=== PATIENT | male | born 1955 | race Caucasian/White ===

== ENCOUNTER 2020-01-13 15:08 | Inpatient (IN) | payer MEDICAID, OTHER ==
[~2020-01-13] VITALS: Ht 182.9 cm; Wt 135.7 kg
[2020-01-13 15:52] LABS: Basophils # (auto) 0 10 ^3/uL (0-0.2); Basophils % (auto) 0.7 % (0.0-2.0); Eosinophils # (auto) 0.1 10 ^3/uL (0-0.8); Eosinophils % (auto) 1.9 % (0.0-7.0); Hemoglobin 7.3 g/dL (13.5-17.5); Monocytes # (auto) 0.4 10 ^3/uL (0-1.3); Platelet Count (auto) 87 10^3/uL (140-450); Red Blood Cells 2.69 10^6/uL (4.5-5.90)
[2020-01-13 15:53] LABS: Hematocrit 22.3 % (41.0-53.0); Lymphocytes # (auto) 0.7 10 ^3/uL (0.4-5.4); Lymphocytes % (auto) 11.9 % (10.0-50.0); Mean Corpuscular Hemoglobin 26.9 pg (28.0-32.0); Mean Corpuscular Hgb Conc. 32.5 g/dL (32.0-36.0); Mean Corpuscular Volume 82.9 fL (80.0-100.0); Monocytes % (auto) 7.4 % (0.0-12.0); Neutrophils # (auto) 4.7 10 ^3/uL (1.6-8.6); Neutrophils % (auto) 78.1 % (37.0-80.0); Red Cell Distribution Width 17.5 % (11.8-14.3)
[2020-01-13 16:14] LABS: Albumin 2.7 g/dL (3.4-5.0); Anion Gap 7 (5-15); BUN/Creatinine Ratio 16.5; Blood Alcohol < 3.0 mg/dL (0-5); Blood Urea Nitrogen 61 mg/dL (7-18); Calcium 8.1 mg/dL (8.5-10.1); Carbon Dioxide 33 mmol/L (21-32); Chloride 97 mmol/L (98-107); GFR African American 21 mL/min; GFR Non-African American 18 mL/min; Glucose 133 mg/dL (74-106); Magnesium 2.6 mg/dL (1.6-2.6); Potassium 4.1 mmol/L (3.5-5.1); Sodium 137 mmol/L (136-145)
[2020-01-13 16:17] LABS: INR 1.08 (0.9-1.15); Partial Thromboplastin Time 26.4 sec (23.0-31.2)
[2020-01-13 16:20] LABS: Alanine Aminotransferase 15 U/L (16-61); Alkaline Phosphatase 106 U/L (45-117); Aspartate Aminotransferase 17 U/L (15-37); Bilirubin, Total 0.7 mg/dL (0.2-1.0); Lactic Acid w/Reflex 2.7 mmol/L (0.4-2.0); Total Protein 7.1 g/dL (6.4-8.2)
[2020-01-13 16:48] LABS: Urine Bacteria NONE SEEN /hpf (None Seen); Urine Blood Negative /uL (Negative); Urine Mucus FEW (None Seen); Urine Specific Gravity 1.009 (1.001-1.035); Urine WBC <1 /hpf (0 - 3)
[2020-01-13 17:11] LABS: Alcohol, Urine < 3.0 mg/dL (0-10); Amphetamine Screen, Urine NEGATIVE (NEGATIVE); Barbiturate Scree,Urine NEGATIVE (NEGATIVE); Benzodiazephine Screen, Urine NEGATIVE (NEGATIVE); Cannabinoid Screen, Urine NEGATIVE (NEGATIVE); Cocaine Screen, Urine NEGATIVE (NEGATIVE); Opiate Scree,Urine NEGATIVE (NEGATIVE); Phencyclidine Screen, Urine NEGATIVE (NEGATIVE)
[2020-01-13] MEDS ORDERED: SODIUM CHLORIDE 0.9% 1,000 ML IV ONE ×3 (18:15→23:13)
[2020-01-13] MEDS ORDERED: cefTRIAXone 1GM/50ML D5W 50 ML IV ONE (18:15)
[2020-01-13] MEDS ORDERED: MORPHINE SULF INJ 2 MG/ML SYRINGE 1ML IV PRN ×2 (19:00→23:15)
[2020-01-13] MEDS ORDERED: NITROGLYCERIN 0.4 MG SL TAB SL PRN ×2 (19:00→23:15)
[2020-01-13] MEDS ORDERED: HYDR-531 PO (19:33)
[2020-01-13] MEDS ORDERED: OME20T PO (19:33)
[2020-01-13] MEDS ORDERED: ATOR40TA52 PO (19:33)
[2020-01-13] MEDS ORDERED: MONT10TA34 PO (19:34)
[2020-01-13] MEDS ORDERED: BUME1TAB3 PO (19:34)
[2020-01-13] MEDS ORDERED: ONDA-144 PO (19:34)
[2020-01-13] MEDS ORDERED: DOCU100T15 PO (19:44)
[2020-01-13] MEDS ORDERED: LEVO100T8 PO (19:44)
[2020-01-13] MEDS ORDERED: INS7030I SC (19:44)
[2020-01-13] MEDS ORDERED: CHOL0.05 PO (19:44)
[2020-01-13] MEDS ORDERED: PREG200C19 PO (19:44)
[2020-01-13] MEDS ORDERED: MAGN400T40 PO (19:44)
[2020-01-13] MEDS ORDERED: METO25TA93 PO (19:44)
[2020-01-13] MEDS ORDERED: SENN-58 PO (19:44)
[2020-01-13] MEDS ORDERED: METO5TAB56 PO (19:44)
[2020-01-13] MEDS ORDERED: ASPI-498 PO (19:44)
[2020-01-13] MEDS ORDERED: SPIR50TA5 PO (19:44)
[2020-01-13] MEDS ORDERED: FLUO-125 PO (19:44)
[2020-01-13] MEDS ORDERED: VANCOMYCIN PER PHARMACY 0 MG IV SCH (19:45)
[2020-01-13] MEDS ORDERED: PIPERACILLIN-TAZOB 2.25GM 50 ML IV ONE (19:45)
[2020-01-13] MEDS ORDERED: POM ×2 (19:46)
[2020-01-13] MEDS ORDERED: CETI10TA80 PO (19:48)
[2020-01-13] MEDS ORDERED: VANCOMYCIN 1GM/250ML 250 ML IV ONE (22:00)
[2020-01-13] MEDS ORDERED: LORazepam 2MG/ML-1ML VIAL IV PRN (23:15)
[2020-01-13] MEDS ORDERED: ACETAMINOPHEN 325 MG TAB PO PRN (23:15)
[2020-01-13] MEDS ORDERED: MORPHINE SULFATE 4 MG/ML SYR/VIAL IV PRN (23:15)
[2020-01-13] MEDS ORDERED: DEXTROSE (50%) 50ML SYRG IV PRN (23:45)
[2020-01-14] MEDS: SODIUM CHLORIDE 0.9% 1,000 ML IV SCH ×2 (00:45→17:03)
[2020-01-14] MEDS: HYDROCORTISONE SOD SUCC 100 MG/2ML INJ VIAL IV SCH ×4 (00:45→17:39)
[2020-01-14 01:50] VITALS: BP 100/37
[2020-01-14] MEDS: FUROSEMIDE 20 MG/2 ML VIAL IV SCH ×2 (05:52→17:39)
[2020-01-14] MEDS ORDERED: FUROSEMIDE 20 MG/2 ML VIAL IV SCH (06:00)
[2020-01-14] MEDS: ACCU-CHEK COMFORT CURVE STRIP VI SCH ×4 (06:51→22:00)
[2020-01-14] MEDS: LEVOTHYROXINE SODIUM 100 MCG TAB PO SCH (06:51)
[2020-01-14] MEDS: InsuLIN REG 1unit/0.01ml Soln (100units/ml) SC SCH ×3 (06:51→17:00)
[2020-01-14 07:05] LABS: Basophils # (auto) 0 10 ^3/uL (0-0.2); Eosinophils # (auto) 0.1 10 ^3/uL (0-0.8); Hemoglobin 7.4 g/dL (13.5-17.5); Lymphocytes # (auto) 0.9 10 ^3/uL (0.4-5.4); Mean Corpuscular Volume 83.8 fL (80.0-100.0); Monocytes # (auto) 0.4 10 ^3/uL (0-1.3); Neutrophils # (auto) 3.1 10 ^3/uL (1.6-8.6)
[2020-01-14 07:07] LABS: Basophils % (auto) 0.9 % (0.0-2.0); Eosinophils % (auto) 2.7 % (0.0-7.0); Hematocrit 22.6 % (41.0-53.0); Lymphocytes % (auto) 19.9 % (10.0-50.0); Mean Corpuscular Hemoglobin 27.4 pg (28.0-32.0); Mean Corpuscular Hgb Conc. 32.7 g/dL (32.0-36.0); Monocytes % (auto) 8.8 % (0.0-12.0); Neutrophils % (auto) 67.7 % (37.0-80.0); Nucleated Red Blood Cells % 0.2 %; Platelet Count (auto) 72 10^3/uL (140-450); Red Cell Distribution Width 17.5 % (11.8-14.3); White Blood Cell 4.6 10^3/uL (4.4-10.8)
[2020-01-14 07:27] LABS: BUN/Creatinine Ratio 17.3; Calcium 7.9 mg/dL (8.5-10.1); Potassium 3.8 mmol/L (3.5-5.1)
[2020-01-14] MEDS: ASPirin 81 mg TAB PO SCH (09:44)
[2020-01-14] MEDS: FAMOTIDINE (10MG/ML) 2ML VL IV SCH (09:44)
[2020-01-14] MEDS: FLUoxetine HCL 20 MG CAP PO SCH (09:45)
[2020-01-14] MEDS: MAGNESIUM OXIDE 400 MG TAB PO SCH ×2 (09:45→23:12)
[2020-01-14] MEDS: SPIRONOLACTONE 25 MG TAB PO SCH (09:45)
[2020-01-14] MEDS: PREGABALIN 25 MG CAP PO SCH ×2 (09:45→23:12)
[2020-01-14] MEDS: METOPROLOL SUCCINATE XL 50 MG TAB PO SCH (09:46)
[2020-01-14] MEDS: CHOLECALCIFEROL (VITD3) 2,000 UNIT CAP PO SCH (09:47)
[2020-01-14] MEDS: DOCUSATE SOD 100 MG CAP PO SCH ×2 (09:48→23:12)
[2020-01-14] MEDS: ALBUMIN 25% 100 ML IV SCH ×2 (09:50→17:09)
[2020-01-14] MEDS: GLYCOPYRROLATE NEB SCH ×2 (10:00→22:00)
[2020-01-14] MEDS ORDERED: PIPERACILLIN-TAZOB 2.25GM 50 ML IV SCH (10:00)
[2020-01-14] MEDS: BUDESONIDE (INHALATION) 0.5 MG/2 ML NEB NEB SCH ×3 (10:00→19:26)
--- NOTE | 2020-01-14 13:20 | NUR ---
Telemetry admit from ER DELL WARREN admitted to Telemetry unit after SBAR received. Patient oriented to Kathy Owens, primary RN, unit, room, bed, and unit policies regarding patient care and visiting hours. Patient now on continuous telemetry monitoring, tele box # [id number] and telemetry reading on arrival to unit is . Patient placed on bedside oxygen, weighed by bedscale and encouraged to call if they need something. All questions and concerns addressed, patient verbalized understanding. Note:
[2020-01-14 13:30] VITALS: BP 115/66
--- NOTE | 2020-01-14 13:30 | NUR ---
ASSESSMENT NOTE PT ARRIVED FROM ER VIA GURNEY FROM ER TO ROOM 236, PT IS ALERT TO SELF, FORGETFUL ABOUT THE SITUATION AND TIME, BUT FOLLOW UP DIRECTIONS AND ABLE TO BE REORIENTED AGAIN TO TIME, PLACE AND PERSON, PT IS OBESE TALL AND BIG, LARGE SOFT ABDOMEN NOTED, MITTAL CATHETER TO GRAVITY, URINE YELLOW TO CLEAR, EMPTY 1900 ML, RT LOWER EXTREMITIES SKIN ABRASIONS AND SKIN TEARS, LEFT ELBOW SKIN TEAR, LEFT FOREARM SKIN TEAR , TRACHEOSTOMY TUBE NOTED AT THE NECK BSE AREA, OXYGEN 2 L NC, WEAKNESS NOTED AT BOTH LOWER EXTREMITIES, PAIN0/10, ROOM ORIENTATION GIVEN TO PT, CALL LIGHT WITHIN REACH, ON FALL RISK PRECAUTIONS, BED ALARM ACTIVATED
--- NOTE | 2020-01-14 13:40 | NUR ---
WOUND CARE AND PICTURES CLEANSE WITH NS, PAT IT TO DRY, OPTIFOAM APPLIED, TOLERATED WELL RT LOWER EXTREMITIES, SKIN TER AND ABRASIONS LEFT ELBOW TEAR LEFT FOREARM SKIN TEAR
[2020-01-14 14:50] VITALS: BP 115/66
--- NOTE | 2020-01-14 16:35 | NUR ---
REPORT GIVEN TO DARLING JHAVERI WITH ALL PATIENT'S UPDATE
[2020-01-14 16:40] VITALS: BP 100/54
--- NOTE | 2020-01-14 16:40 | NUR ---
Pt Arrived on Unit/Transfer Pt transferred from 236 to room 273a. Pt transported via bed. Pt is a/ox4 with no s/s of distress or SOB. Pt placed on 2L via NC. Safety measures initiated with call light within reach, bed in lowest position and side rails up. Will continue to monitor for changes.
--- NOTE | 2020-01-14 16:50 | NUR ---
TRANSFER PT TO [facility] VIA HOSPITAL BED TO ROOM TO ROOM 273A, SHAKILA HASTINGS AT BED SIDE, PT STABLE, NO DISTRESS NOTED.
--- NOTE | 2020-01-14 16:55 | NUR ---
FAMILY SPOKE WITH PATENT'S LARA MADE AWARE OF PATIENT'S NEW ROOM 273A
--- NOTE | 2020-01-14 18:20 | NUR ---
Paged RT; Suction Treatment Pt requests suction treatment to Trach T tube; unable to successfully suction pt with Bryan. Paged RT and updated them on pt's trach and needs. RT stated they would be on the floor soon to see pt. Will endorse and notify TARSHA JHAVERI.
[2020-01-14] MEDS: IPRATROPIUM BROM 0.5 MG/2.5ML INH SOL NEB PRN (19:26)
[2020-01-14 20:00] VITALS: BP 107/59
[2020-01-14 22:00] VITALS: BP 107/59
[2020-01-14] MEDS ORDERED: SENNA 8.6 MG TAB PO SCH (22:00)
[2020-01-14] MEDS ORDERED: MONTELUKAST SODIUM 10 MG TAB PO SCH (22:00)
[2020-01-14] MEDS ORDERED: ATORVASTATIN 20 MG TAB PO SCH (22:00)
[2020-01-14] MEDS ORDERED: InsuLIN REG 1unit/0.01ml Soln (100units/ml) SC SCH (22:00)
--- NOTE | 2020-01-14 23:41 | NUR ---
SX PROVIDED VIA T-TUBE TRACHEOSTOMY, USING STERILE TECHNIQUE. SXD FOR SMALL AMOUNT OF THICK YELLOW/CREAMY COLORED SECRETIONS. NO ADVERSE REACTION OR INCIDENT. PT ALSO REQUESTED HIS STOMA SITE CLEANED CLEANED STOMA WITHOUT INCIDENT. PT AWARE RESPIRATORY CAN BE PAGED AT ANY TIME HE EXPERIENCES ANY SOB OR DIFFICULTY WITH HIS AIRWAY.
[2020-01-15] VITALS (9 sets, daily range): BP systolic 110–158; BP diastolic 60–83
[2020-01-15] MEDS: HYDROCORTISONE SOD SUCC 100 MG/2ML INJ VIAL IV SCH ×4 (00:12→18:00)
[2020-01-15] MEDS: ALBUMIN 25% 100 ML IV SCH (01:34)
--- NOTE | 2020-01-15 02:37 | NUR ---
Respiratory note: PT STATED EARLIER HE WANTS TO BE SUCTIONED Q4HRS. ENTERED ROOM, PT WAS SLEEPING. WOKE UP PT, PT STATED HE DOESN'T THINK HE HAS ENOUGH TO SUCTION AT THIS TIME. PT AWARE TO CALL IF HE NEEDS SUCTIONING. SPO2 100% ON 3L N/C, HR 67, RR 20. PT REMAINS ON CONT. POX.
[2020-01-15] MEDS: LEVOTHYROXINE SODIUM 100 MCG TAB PO SCH (06:07)
[2020-01-15] MEDS: FUROSEMIDE 20 MG/2 ML VIAL IV SCH ×2 (06:07→18:00)
[2020-01-15] MEDS: InsuLIN REG 1unit/0.01ml Soln (100units/ml) SC SCH ×3 (06:16→18:45)
[2020-01-15] MEDS: ACCU-CHEK COMFORT CURVE STRIP VI SCH ×3 (06:16→18:43)
[2020-01-15 06:37] LABS: Basophils # (auto) 0 10 ^3/uL (0-0.2); Eosinophils # (auto) 0 10 ^3/uL (0-0.8); Lymphocytes # (auto) 0.3 10 ^3/uL (0.4-5.4); Monocytes # (auto) 0.1 10 ^3/uL (0-1.3); Neutrophils # (auto) 2.9 10 ^3/uL (1.6-8.6); White Blood Cell 3.3 10^3/uL (4.4-10.8)
[2020-01-15 06:39] LABS: Basophils % (auto) 0.7 % (0.0-2.0); Eosinophils % (auto) 0.3 % (0.0-7.0); Hematocrit 20.1 % (41.0-53.0); Lymphocytes % (auto) 8.9 % (10.0-50.0); Mean Corpuscular Hemoglobin 27.6 pg (28.0-32.0); Mean Corpuscular Hgb Conc. 32.7 g/dL (32.0-36.0); Mean Corpuscular Volume 84.4 fL (80.0-100.0); Neutrophils % (auto) 86.1 % (37.0-80.0); Nucleated Red Blood Cells % 0.1 %; Platelet Count (auto) 66 10^3/uL (140-450); Red Blood Cells 2.38 10^6/uL (4.5-5.90); Red Cell Distribution Width 16.9 % (11.8-14.3)
[2020-01-15 06:42] LABS: Hemoglobin 6.6 g/dL (13.5-17.5)
--- NOTE | 2020-01-15 06:47 | NUR ---
CALLED FOR CRITICAL HGB 6.6 ORDERS TO TRANSFUSE 1 UNIT
[2020-01-15 06:57] LABS: Calcium 8.2 mg/dL (8.5-10.1); Potassium 4.2 mmol/L (3.5-5.1)
--- NOTE | 2020-01-15 07:25 | NUR ---
TRANSFUSION ENDORSED TRANSFUSION ENDORSED TO Arian Traore PATIENT REFUSED TO SIGN BLOOD CONSENT, SAID HIS WILL HAVE TO SIGN IT.
--- NOTE | 2020-01-15 07:45 | NUR ---
Transfusion Patient refusing transfusion at this time, want to talk with MD and for MD to talk with his first. Will notify MD.
[2020-01-15] MEDS: DOCUSATE SOD 100 MG CAP PO SCH (09:56)
[2020-01-15] MEDS: PREGABALIN 25 MG CAP PO SCH (09:56)
[2020-01-15] MEDS: FLUoxetine HCL 20 MG CAP PO SCH (09:57)
[2020-01-15] MEDS: ASPirin 81 mg TAB PO SCH (09:57)
[2020-01-15] MEDS: SPIRONOLACTONE 25 MG TAB PO SCH (09:57)
[2020-01-15] MEDS: MAGNESIUM OXIDE 400 MG TAB PO SCH (09:57)
[2020-01-15] MEDS: METOPROLOL SUCCINATE XL 50 MG TAB PO SCH (09:59)
[2020-01-15] MEDS: GLYCOPYRROLATE NEB SCH (10:00)
[2020-01-15] MEDS: CHOLECALCIFEROL (VITD3) 2,000 UNIT CAP PO SCH (10:00)
[2020-01-15] MEDS: FAMOTIDINE (10MG/ML) 2ML VL IV SCH (10:01)
[2020-01-15] MEDS: SODIUM CHLORIDE 0.9% 1,000 ML IV SCH (10:06)
[2020-01-15] MEDS: IPRATROPIUM BROM 0.5 MG/2.5ML INH SOL NEB PRN (11:06)
[2020-01-15] MEDS: BUDESONIDE (INHALATION) 0.5 MG/2 ML NEB NEB SCH (11:07)
--- NOTE | 2020-01-15 11:55 | NUR ---
WOUND CARE NOTE: WOUND CARE IN TO SEE PATIENT PER WOUND CARE REQUEST. PATIENT ADMITTED TO [facility] FOR [facility] IN A PATIENT WITH ESRD. BEDSIDE NURSE NOTED SKIN INTEGRITY ISSUES UPON ADMISSION. PHOTOGRAPHS TAKEN AT THAT TIME FOR REFERENCE. PATIENT YOSEF SCORE IS 16. PATIENT NOTED TO HAVE SKIN TEARS TO LEFT FOREARM, LEFT ELBOW, AND RIGHT ELAM. LEFT FOREARM SKIN TEAR MEASURES 0.5x1.0cm. CLEANSED WITH NORMAL SALINE, PATTED DRY WITH STERILE GAUZE, THERAHONEY APPLIED, COVERED WITH OPTIFOAM GENTLE DRESSING. LEFT ELBOW SKIN TEAR MEASURES 1.5x1.0cm. CLEANSED WITH NORMAL SALINE, PATTED DRY WITH STERILE GAUZE, THERAHONEY APPLIED, COVERED WITH OPTIFOAM GENTLE DRESSING. RIGHT ELAM SKIN TEAR MEASURES 3.5x3.0cm. CLEANSED WITH NORMAL SALINE, PATTED DRY WITH STERILE GAUZE, THERAHONEY APPLIED, COVERED WITH OPTIFOAM GENTLE DRESSING. NO OTHER WOUNDS NOTED. RECOMMEND: EOD/PRN DRESSING CHANGES TO SKIN TEARS. FREQUENT Q2HOUR REPOSITIONING CONDITION PERMITS. REDISTRIBUTE PRESSURE UTILIZING PILLOWS AND WEDGES. SKIN/WOUND CARE PLAN. CONTINUED MONITORING BY WOUND CARE TEAM. Addendum: 01/15/20 at 1507 by MANDY RILEY RN RN Amended: Links added.
--- NOTE | 2020-01-15 17:10 | NUR ---
Discharge Pictures Discharge pictures taken.
--- NOTE | 2020-01-15 17:11 | NUR ---
Transfusion Blood transfusion ended, no signs of interaction observed or reported. Will recheck vitals in 1 hour and patient can be discharged home as per MD's orders.
--- NOTE | 2020-01-15 20:17 | NUR ---
Discharge instructions given as ordered. Encourage to follow up with PMD as instructed. All questions and concerns addressed. Patient verbalized understanding. IV removed with catheter intact, pressure dressing applied, de catheter removed. Telemetry unit returned to ICU. Patient taken to vehicle via wheelchair with all personal belongings, accompanied by staff and family member. No distress noted at time of departure.
== END 2020-01-15 20:17 | disposition home or self-care (01) | DRG 312 ==
LOC: EDBD 15:08 → ER 15:08 → TELE 15:09 → TELE-WESTW 01-14 13:18 → TELE-EAST 01-14 13:20 → TELE-WESTW 01-14 17:01
PROVIDERS: ADMIT Hospitalist; ATTEND Internal Medicine Geriatric Medicine
PROC: 30233N1 Transfusion of Nonautologous Red Blood Cells into Peripheral Vein, Percutaneous Approach (ICD-10-PCS; principal; 2020-01-15)
DX: I95.1 Orthostatic hypotension (principal); E43 Unspecified severe protein-calorie malnutrition; J96.10 Chronic respiratory failure, unspecified whether with hypoxia or hypercapnia; I13.0 Hypertensive heart and chronic kidney disease with heart failure and stage 1 through stage 4 chronic kidney disease, or unspecified chronic kidney disease; N18.4 Chronic kidney disease, stage 4 (severe); K59.04 Chronic idiopathic constipation; D63.1 Anemia in chronic kidney disease; E03.9 Hypothyroidism, unspecified; E11.22 Type 2 diabetes mellitus with diabetic chronic kidney disease; I27.20 Pulmonary hypertension, unspecified; E11.21 Type 2 diabetes mellitus with diabetic nephropathy; I25.10 Atherosclerotic heart disease of native coronary artery without angina pectoris; E78.5 Hyperlipidemia, unspecified; Z20.828 Contact with and (suspected) exposure to other viral communicable diseases; J32.9 Chronic sinusitis, unspecified; M19.90 Unspecified osteoarthritis, unspecified site; J44.9 Chronic obstructive pulmonary disease, unspecified; Z95.1 Presence of aortocoronary bypass graft; Z86.73 Personal history of transient ischemic attack (TIA), and cerebral infarction without residual deficits; I25.2 Old myocardial infarction; Z88.5 Allergy status to narcotic agent; Z91.041 Radiographic dye allergy status; I50.9 Heart failure, unspecified; E66.01 Morbid (severe) obesity due to excess calories
CPT/HCPCS: 36415; 36600; 70450; 71045; 80048; 80053; 80202; 80307; 80320; 81001; 82550; 82728; 82805; 82962; 83605; 83735; 84484; 85025; 85379; 85610; 85730; 86141; 86850; 86900; 86901; 86920; 87040; 87086; 87426; 93005; 93306; 94640; 94760; 99291; G0378; J0696; J1815; J2543; J3490; P9047

== ENCOUNTER 2020-06-13 21:24 | Inpatient (IN) | payer OTHER ==
[~2020-06-13] VITALS: Ht 175.3 cm; Wt 145.1 kg
[~2020-06-13 21:24] MED LIST: ASPI-498 PO; ATOR40TA52 PO; BUME1TAB3 PO; CETI10TA80 PO; CHOL0.05 PO; DOCU100T15 PO; FLUO-125 PO; HYDR-531 PO; INS7030I SC; LEVO100T8 PO; MAGN400T40 PO; METO25TA93 PO; METO5TAB56 PO; MONT10TA34 PO; OME20T PO; ONDA-144 PO; POM NEB; PREG200C19 PO; SENN-58 PO; SPIR50TA5 PO
[2020-06-13 22:26] LABS: Basophils # (auto) 0 10 ^3/uL (0-0.2); Lymphocytes # (auto) 0.4 10 ^3/uL (0.4-5.4); Monocytes # (auto) 0.3 10 ^3/uL (0-1.3); Monocytes % (auto) 6.8 % (0.0-12.0); Neutrophils # (auto) 4.3 10 ^3/uL (1.6-8.6); White Blood Cell 5.1 10^3/uL (4.4-10.8)
[2020-06-13 22:28] LABS: Basophils % (auto) 0.6 % (0.0-2.0); Eosinophils # (auto) 0.1 10 ^3/uL (0-0.8); Eosinophils % (auto) 1.1 % (0.0-7.0); Hematocrit 19.4 % (41.0-53.0); Lymphocytes % (auto) 7.8 % (10.0-50.0); Mean Corpuscular Hemoglobin 26.5 pg (28.0-32.0); Mean Corpuscular Hgb Conc. 30.8 g/dL (32.0-36.0); Mean Corpuscular Volume 86.2 fL (80.0-100.0); Neutrophils % (auto) 83.7 % (37.0-80.0); Platelet Count (auto) 66 10^3/uL (140-450); Red Blood Cells 2.25 10^6/uL (4.5-5.90); Red Cell Distribution Width 17.9 % (11.8-14.3)
[2020-06-13 22:43] LABS: Albumin 2.9 g/dL (3.4-5.0); Amylase 15 U/L (25-115); Anion Gap 2 (5-15); Calcium 7.9 mg/dL (8.5-10.1); Carbon Dioxide 36 mmol/L (21-32); Chloride 95 mmol/L (98-107); Glucose 197 mg/dL (74-106); Lipase 23 U/L (73-393); Sodium 133 mmol/L (136-145)
[2020-06-13 22:49] LABS: Nucleated Red Blood Cells % 3.2 %
[2020-06-13 22:50] LABS: Alanine Aminotransferase 11 U/L (16-61); Alkaline Phosphatase 88 U/L (45-117); Aspartate Aminotransferase 12 U/L (15-37); BUN/Creatinine Ratio 17.1; Bilirubin, Total 1.3 mg/dL (0.2-1.0); GFR African American 13 mL/min; GFR Non-African American 11 mL/min; Total Protein 7.5 g/dL (6.4-8.2)
[2020-06-13 22:57] LABS: INR 1.18 (0.9-1.15); Partial Thromboplastin Time 28.5 sec (23.0-31.2)
[2020-06-13 23:03] LABS: Blood Urea Nitrogen 96 mg/dL (7-18); Potassium 6.3 mmol/L (3.5-5.1)
[2020-06-13 23:04] LABS: Magnesium 4.2 mg/dL (1.6-2.6)
[2020-06-13] MEDS ORDERED: LACTULOSE 20Gm/30ML SOLN PO ONE (23:15)
[2020-06-13] MEDS ORDERED: POTASSIUM CHL 20MEQ/100ML 100 ML IV ONE (23:15)
[2020-06-14] MEDS ORDERED: SODIUM BICARBONATE 8.4% INJ 50ML SYRINGE IV ONE
[2020-06-14] MEDS ORDERED: DEXTROSE (50%) 50ML SYRG IV ONE
[2020-06-14] MEDS ORDERED: FUROSEMIDE 20 MG/2 ML VIAL IV ONE
[2020-06-14] MEDS ORDERED: InsuLIN REG 1unit/0.01ml Soln (100units/ml) IV ONE
[2020-06-14] MEDS ORDERED: ALBUTEROL SULF 2.5 MG/0.5ML(0.5%) NEB SOLN NEB ONE
[2020-06-14] MEDS ORDERED: NOREPINEPHRINE 8 MG/250ML KIT 250 ML IV ONE (01:54)
[2020-06-14] MEDS: NOREPINEPHRINE 8 MG/250ML KIT 250 ML IV SCH (02:36)
[2020-06-14 02:37] LABS: Alcohol, Urine < 3.0 mg/dL (0-10); Amphetamine Screen, Urine NEGATIVE (NEGATIVE); Barbiturate Scree,Urine NEGATIVE (NEGATIVE); Benzodiazephine Screen, Urine NEGATIVE (NEGATIVE); Cannabinoid Screen, Urine NEGATIVE (NEGATIVE); Cocaine Screen, Urine NEGATIVE (NEGATIVE); Opiate Scree,Urine NEGATIVE (NEGATIVE); Phencyclidine Screen, Urine NEGATIVE (NEGATIVE); Urine Bacteria FEW /hpf (None Seen); Urine Blood Negative /uL (Negative); Urine Hyaline Cast FEW /lpf (0 - 2); Urine Specific Gravity 1.014 (1.001-1.035); Urine WBC 1 /hpf (0 - 3)
[2020-06-14] MEDS ORDERED: ONDANSETRON HCL 4 MG/2 ML VIAL IV PRN (02:45)
[2020-06-14] MEDS ORDERED: MORPHINE SULF INJ 2 MG/ML SYRINGE 1ML IV PRN (02:45)
[2020-06-14] MEDS ORDERED: NITROGLYCERIN 0.4 MG SL TAB SL PRN (02:45)
[2020-06-14] MEDS ORDERED: DEXTROSE (50%) 50ML SYRG IV PRN (02:45)
[2020-06-14 03:00] VITALS: BP 100/62
[2020-06-14 03:51] LABS: BUN/Creatinine Ratio 17.7; Calcium 7.9 mg/dL (8.5-10.1)
[2020-06-14 04:07] LABS: Potassium 5.6 mmol/L (3.5-5.1)
[2020-06-14] MEDS: ACCU-CHEK COMFORT CURVE STRIP VI SCH ×3 (06:11→18:00)
[2020-06-14] MEDS: InsuLIN REG 1unit/0.01ml Soln (100units/ml) SC SCH ×3 (06:16→18:31)
[2020-06-14] MEDS: FUROSEMIDE 40 MG/4 ML VIAL IV SCH ×2 (06:23→18:27)
[2020-06-14] MEDS: LEVOTHYROXINE SODIUM 100 MCG TAB PO SCH (07:00)
[2020-06-14] MEDS: LACTULOSE 20Gm/30ML SOLN PO SCH (08:49)
[2020-06-14 09:46] VITALS: BP 120/43
[2020-06-14 10:15] LABS: Basophils # (auto) 0 10 ^3/uL (0-0.2); Eosinophils # (auto) 0.1 10 ^3/uL (0-0.8); Hemoglobin 7.5 g/dL (13.5-17.5); Monocytes # (auto) 0.6 10 ^3/uL (0-1.3); Nucleated Red Blood Cells % 0.1 %
[2020-06-14 10:18] LABS: Basophils % (auto) 0.6 % (0.0-2.0); Eosinophils % (auto) 1.3 % (0.0-7.0); Hematocrit 23.6 % (41.0-53.0); Lymphocytes # (auto) 0.5 10 ^3/uL (0.4-5.4); Lymphocytes % (auto) 7.4 % (10.0-50.0); Mean Corpuscular Hemoglobin 27.5 pg (28.0-32.0); Mean Corpuscular Hgb Conc. 31.9 g/dL (32.0-36.0); Monocytes % (auto) 9.8 % (0.0-12.0); Neutrophils % (auto) 80.9 % (37.0-80.0); Platelet Count (auto) 72 10^3/uL (140-450); Red Blood Cells 2.74 10^6/uL (4.5-5.90); Red Cell Distribution Width 17.3 % (11.8-14.3); White Blood Cell 6.2 10^3/uL (4.4-10.8)
[2020-06-14 10:28] LABS: BUN/Creatinine Ratio 17.4; Calcium 8.1 mg/dL (8.5-10.1)
[2020-06-14 11:19] LABS: Potassium 5.7 mmol/L (3.5-5.1)
[2020-06-14] MEDS ORDERED: TAM04C PO (13:20)
[2020-06-14] MEDS ORDERED: LACT10SO3 PO (13:20)
[2020-06-14] MEDS ORDERED: LEVA0.6320 IN (13:20)
[2020-06-14] MEDS ORDERED: ACET-1304 PO (13:20)
[2020-06-14] MEDS ORDERED: SILV-21 TOP (13:20)
[2020-06-14] MEDS ORDERED: LID35TP EX (13:20)
[2020-06-14] MEDS: PANTOPRAZOLE 40 MG/10 ML VIAL INJ IV SCH (22:00)
[2020-06-14] MEDS: ATORVASTATIN 20 MG TAB PO SCH (22:00)
[2020-06-15] MEDS: InsuLIN REG 1unit/0.01ml Soln (100units/ml) SC SCH ×4 (00:36→18:53)
[2020-06-15] MEDS: ACCU-CHEK COMFORT CURVE STRIP VI SCH ×4 (00:36→18:53)
[2020-06-15] MEDS: NOREPINEPHRINE 8 MG/250ML KIT 250 ML IV SCH ×2 (02:21→14:45)
[2020-06-15] MEDS: FUROSEMIDE 40 MG/4 ML VIAL IV SCH (06:16)
[2020-06-15 07:15] LABS: Eosinophils # (auto) 0.1 10 ^3/uL (0-0.8); Lymphocytes # (auto) 0.5 10 ^3/uL (0.4-5.4); Monocytes # (auto) 0.6 10 ^3/uL (0-1.3); Neutrophils # (auto) 4.3 10 ^3/uL (1.6-8.6); Nucleated Red Blood Cells % 0.1 %; Red Blood Cells 2.75 10^6/uL (4.5-5.90); Red Cell Distribution Width 17.6 % (11.8-14.3); White Blood Cell 5.5 10^3/uL (4.4-10.8)
[2020-06-15 07:18] LABS: Basophils # (auto) 0 10 ^3/uL (0-0.2); Basophils % (auto) 0.8 % (0.0-2.0); Hematocrit 23.8 % (41.0-53.0); Hemoglobin 7.5 g/dL (13.5-17.5); Lymphocytes % (auto) 9.7 % (10.0-50.0); Mean Corpuscular Hemoglobin 27.4 pg (28.0-32.0); Mean Corpuscular Hgb Conc. 31.7 g/dL (32.0-36.0); Mean Corpuscular Volume 86.6 fL (80.0-100.0); Monocytes % (auto) 10.1 % (0.0-12.0); Neutrophils % (auto) 77.4 % (37.0-80.0); Platelet Count (auto) 67 10^3/uL (140-450)
[2020-06-15 07:22] LABS: Calcium 8.3 mg/dL (8.5-10.1)
[2020-06-15 07:26] LABS: BUN/Creatinine Ratio 18.8
[2020-06-15 07:29] LABS: Bilirubin, Total 1.4 mg/dL (0.2-1.0); Total Protein 7.3 g/dL (6.4-8.2)
[2020-06-15 08:09] LABS: Potassium 5.7 mmol/L (3.5-5.1)
[2020-06-15] MEDS: PANTOPRAZOLE 40 MG/10 ML VIAL INJ IV SCH ×2 (08:22→22:00)
[2020-06-15] MEDS: LEVOTHYROXINE SODIUM 100 MCG TAB PO SCH (08:22)
[2020-06-15] MEDS ORDERED: SODIUM ZIRCONIUM CYCL 10 GM PAK PO ONE (09:45)
[2020-06-15] MEDS: LACTULOSE 20Gm/30ML SOLN PO SCH (10:53)
[2020-06-15] MEDS ORDERED: CALCIUM GLUC 4.65meq/50ml D5AE 50 ML IV ONE (15:15)
[2020-06-15] MEDS ORDERED: SODIUM CHLORIDE 0.9% 500 ML IV ONE (15:15)
[2020-06-15] MEDS ORDERED: ALBUMIN 25% 100 ML IV ONE ×2 (15:15→16:30)
[2020-06-15] MEDS ORDERED: DEXTROSE (50%) 50ML SYRG IV ONE (15:15)
[2020-06-15] MEDS ORDERED: InsuLIN REG 1unit/0.01ml Soln (100units/ml) IV ONE (15:15)
[2020-06-15] MEDS: SODIUM CHLORIDE 0.9% 1,000 ML IV SCH (15:56)
[2020-06-15] MEDS: ATORVASTATIN 20 MG TAB PO SCH (22:00)
[2020-06-16] VITALS (8 sets, daily range): BP systolic 98–114; BP diastolic 50–57
[2020-06-16] MEDS: ACCU-CHEK COMFORT CURVE STRIP VI SCH ×4 (00:11→18:11)
[2020-06-16] MEDS: InsuLIN REG 1unit/0.01ml Soln (100units/ml) SC SCH ×4 (00:16→18:19)
[2020-06-16] MEDS: SODIUM CHLORIDE 0.9% 1,000 ML IV SCH ×2 (04:35→18:10)
[2020-06-16 06:46] LABS: Basophils # (auto) 0 10 ^3/uL (0-0.2); Eosinophils # (auto) 0.1 10 ^3/uL (0-0.8); Eosinophils % (auto) 1.6 % (0.0-7.0); Lymphocytes # (auto) 0.5 10 ^3/uL (0.4-5.4); Monocytes # (auto) 0.6 10 ^3/uL (0-1.3); Neutrophils # (auto) 3.7 10 ^3/uL (1.6-8.6); Red Cell Distribution Width 17.6 % (11.8-14.3)
[2020-06-16 06:49] LABS: Basophils % (auto) 0.6 % (0.0-2.0); Hematocrit 22.8 % (41.0-53.0); Hemoglobin 7.2 g/dL (13.5-17.5); Lymphocytes % (auto) 10.1 % (10.0-50.0); Mean Corpuscular Hemoglobin 27.5 pg (28.0-32.0); Mean Corpuscular Hgb Conc. 31.7 g/dL (32.0-36.0); Mean Corpuscular Volume 86.8 fL (80.0-100.0); Monocytes % (auto) 12.3 % (0.0-12.0); Neutrophils % (auto) 75.4 % (37.0-80.0); Platelet Count (auto) 60 10^3/uL (140-450); Red Blood Cells 2.62 10^6/uL (4.5-5.90); White Blood Cell 4.9 10^3/uL (4.4-10.8)
[2020-06-16 07:08] LABS: Potassium 5.5 mmol/L (3.5-5.1)
[2020-06-16 07:11] LABS: BUN/Creatinine Ratio 20.9
[2020-06-16] MEDS: LEVOTHYROXINE SODIUM 100 MCG TAB PO SCH (09:30)
[2020-06-16] MEDS: PANTOPRAZOLE 40 MG/10 ML VIAL INJ IV SCH ×2 (09:32→21:47)
[2020-06-16] MEDS: LACTULOSE 20Gm/30ML SOLN PO SCH (10:27)
[2020-06-16] MEDS ORDERED: CALCIUM GLUC 4.65meq/50ml D5AE 50 ML IV ONE (16:45)
[2020-06-16] MEDS ORDERED: InsuLIN REG 1unit/0.01ml Soln (100units/ml) IV ONE (16:45)
[2020-06-16] MEDS ORDERED: DEXTROSE (50%) 50ML SYRG IV ONE (16:45)
[2020-06-16] MEDS: NOREPINEPHRINE 8 MG/250ML KIT 250 ML IV SCH (20:00)
[2020-06-16] MEDS: ATORVASTATIN 20 MG TAB PO SCH (21:47)
[2020-06-16] MEDS: ACETAMINOPHEN 325 MG TAB PO PRN (21:56)
[2020-06-17] MEDS: ACCU-CHEK COMFORT CURVE STRIP VI SCH ×5 (00:18→23:42)
[2020-06-17] MEDS: InsuLIN REG 1unit/0.01ml Soln (100units/ml) SC SCH ×5 (00:21→23:44)
[2020-06-17] MEDS: SODIUM CHLORIDE 0.9% 1,000 ML IV SCH ×3 (01:03→22:01)
[2020-06-17] MEDS: LEVOTHYROXINE SODIUM 100 MCG TAB PO SCH (05:32)
[2020-06-17] MEDS: PANTOPRAZOLE 40 MG/10 ML VIAL INJ IV SCH ×2 (10:07→21:53)
[2020-06-17] MEDS: LACTULOSE 20Gm/30ML SOLN PO SCH (10:07)
[2020-06-17 10:45] LABS: Eosinophils # (auto) 0.1 10 ^3/uL (0-0.8); Lymphocytes # (auto) 0.6 10 ^3/uL (0.4-5.4); Monocytes # (auto) 0.6 10 ^3/uL (0-1.3); Neutrophils # (auto) 3.2 10 ^3/uL (1.6-8.6); Nucleated Red Blood Cells % 0.1 %; Platelet Count (auto) 55 10^3/uL (140-450); White Blood Cell 4.5 10^3/uL (4.4-10.8)
[2020-06-17 10:47] LABS: Basophils # (auto) 0 10 ^3/uL (0-0.2); Basophils % (auto) 0.8 % (0.0-2.0); Eosinophils % (auto) 2.9 % (0.0-7.0); Hematocrit 25.6 % (41.0-53.0); Hemoglobin 8.1 g/dL (13.5-17.5); Lymphocytes % (auto) 13.1 % (10.0-50.0); Mean Corpuscular Hemoglobin 27.6 pg (28.0-32.0); Mean Corpuscular Hgb Conc. 31.6 g/dL (32.0-36.0); Mean Corpuscular Volume 87.3 fL (80.0-100.0); Monocytes % (auto) 12.8 % (0.0-12.0); Neutrophils % (auto) 70.4 % (37.0-80.0); Red Blood Cells 2.94 10^6/uL (4.5-5.90); Red Cell Distribution Width 17.7 % (11.8-14.3)
[2020-06-17 11:04] LABS: BUN/Creatinine Ratio 22.5; Calcium 8.1 mg/dL (8.5-10.1); Potassium 5.3 mmol/L (3.5-5.1)
[2020-06-17] MEDS ORDERED: ALBUMIN 25% 100 ML IV ONE (17:45)
[2020-06-17] MEDS ORDERED: BUMETANIDE 2.5mg/10ml (0.25 mg/ml) INJ IV ONE (17:45)
[2020-06-17] MEDS: ACETAMINOPHEN 325 MG TAB PO PRN (21:03)
[2020-06-17] MEDS: ATORVASTATIN 20 MG TAB PO SCH (21:03)
[2020-06-18] MEDS: NOREPINEPHRINE 8 MG/250ML KIT 250 ML IV SCH (02:15)
[2020-06-18] MEDS: InsuLIN REG 1unit/0.01ml Soln (100units/ml) SC SCH ×2 (05:21→07:40)
[2020-06-18] MEDS: ACCU-CHEK COMFORT CURVE STRIP VI SCH ×2 (05:21→07:40)
[2020-06-18] MEDS: LEVOTHYROXINE SODIUM 100 MCG TAB PO SCH (05:38)
[2020-06-18 06:34] LABS: Potassium 5.1 mmol/L (3.5-5.1)
[2020-06-18 07:03] LABS: Basophils # (auto) 0 10 ^3/uL (0-0.2); Basophils % (auto) 0.8 % (0.0-2.0); Eosinophils # (auto) 0.1 10 ^3/uL (0-0.8); Eosinophils % (auto) 2.9 % (0.0-7.0); Hematocrit 22.8 % (41.0-53.0); Hemoglobin 7.2 g/dL (13.5-17.5); Lymphocytes # (auto) 0.4 10 ^3/uL (0.4-5.4); Lymphocytes % (auto) 14.5 % (10.0-50.0); Mean Corpuscular Hemoglobin 27.3 pg (28.0-32.0); Mean Corpuscular Hgb Conc. 31.5 g/dL (32.0-36.0); Mean Corpuscular Volume 86.7 fL (80.0-100.0); Monocytes # (auto) 0.3 10 ^3/uL (0-1.3); Monocytes % (auto) 9.8 % (0.0-12.0); Neutrophils # (auto) 2.2 10 ^3/uL (1.6-8.6); Nucleated Red Blood Cells % 0.2 %; Platelet Count (auto) 50 10^3/uL (140-450); Red Blood Cells 2.63 10^6/uL (4.5-5.90); Red Cell Distribution Width 17.6 % (11.8-14.3); White Blood Cell 3.1 10^3/uL (4.4-10.8)
[2020-06-18 07:06] LABS: BUN/Creatinine Ratio 21.5; Calcium 8.1 mg/dL (8.5-10.1)
[2020-06-18] MEDS: PANTOPRAZOLE 40 MG/10 ML VIAL INJ IV SCH (07:38)
[2020-06-18] MEDS: LACTULOSE 20Gm/30ML SOLN PO SCH (07:39)
[2020-06-18 12:06] VITALS: BP 96/51
[2020-06-18] MEDS ORDERED: EPOETIN ALFA 10,000 UNIT/1 ML VIAL SC ONE (21:00)
== END 2020-06-18 21:11 | disposition home health service (06) | DRG 292 ==
LOC: EDBD 21:24 → ER 21:26 → OVERFLOW 06-14 02:38
PROVIDERS: ADMIT Nurse Practitioner; ATTEND Internal Medicine Geriatric Medicine
PROC: 30230N1 Transfusion of Nonautologous Red Blood Cells into Peripheral Vein, Open Approach (ICD-10-PCS; principal; 2020-06-14)
DX: I13.0 Hypertensive heart and chronic kidney disease with heart failure and stage 1 through stage 4 chronic kidney disease, or unspecified chronic kidney disease (principal); G93.40 Encephalopathy, unspecified; J96.10 Chronic respiratory failure, unspecified whether with hypoxia or hypercapnia; N18.4 Chronic kidney disease, stage 4 (severe); R57.9 Shock, unspecified; Z68.42 Body mass index [BMI] 45.0-49.9, adult; N04.9 Nephrotic syndrome with unspecified morphologic changes; E86.0 Dehydration; E11.22 Type 2 diabetes mellitus with diabetic chronic kidney disease; D69.6 Thrombocytopenia, unspecified; E87.5 Hyperkalemia; D63.1 Anemia in chronic kidney disease; E66.01 Morbid (severe) obesity due to excess calories; J44.9 Chronic obstructive pulmonary disease, unspecified; Z20.822 Contact with and (suspected) exposure to COVID-19; E78.5 Hyperlipidemia, unspecified; K72.90 Hepatic failure, unspecified without coma; I25.10 Atherosclerotic heart disease of native coronary artery without angina pectoris; E03.9 Hypothyroidism, unspecified; E86.1 Hypovolemia; I50.9 Heart failure, unspecified; Z86.73 Personal history of transient ischemic attack (TIA), and cerebral infarction without residual deficits; Z87.442 Personal history of urinary calculi; Z93.0 Tracheostomy status; Z95.1 Presence of aortocoronary bypass graft; Z88.5 Allergy status to narcotic agent; Z91.041 Radiographic dye allergy status; Z88.8 Allergy status to other drugs, medicaments and biological substances
CPT/HCPCS: 36415; 36430; 70450; 71045; 71250; 74176; 80048; 80053; 80307; 80320; 81001; 82140; 82150; 82728; 82962; 83605; 83690; 83735; 83880; 84484; 85025; 85610; 85730; 86850; 86900; 86901; 86920; 87040; 87086; 87426; 93306; 94640; 94644; 96374; 96375; 99291; A4605; C9113; G0378; J0610; P9047